=== PATIENT | female | born 1985 | race Caucasian/White ===

== ENCOUNTER 2020-07-21 10:49 | Outpatient (CLI) | payer BC, SELFPAY ==
--- NOTE | ~2020-07-21 | MR_ITS ---
EXAMINATION: MR shoulder RT wo con DATE: 07/21/2020 11:45 INDICATION: Right arm pain TECHNIQUE: Magnetic resonance imaging (MRI) of the right shoulder was performed without intravenous c ontrast. Sequences included axial PD-weighted FS FSE, coronal oblique PD-weighted FS FSE, coronal obl ique T2-weighted FS FSE, sagittal PD-weighted FS FSE, and sagittal T1-weighted SE. COMPARISON: None. FINDINGS: Coracoacromial arch: The acromion undersurface is curved in morphology (type II). The coracoacromial ligament is normal. M ild acromioclavicular osteoarthritis. Rotator cuff: Supraspinatus and infraspinatus tendinopathy. There is a small partial-thickness intrasubstance tear involving approximately 50% of the tendon thickness and extending 5 mm AP along the greater tuberosit y footplate of the conjoined portion of the supraspinatus and infraspinatus tendons. The teres minor and subscapularis tendons are normal. Normal rotator cuff muscle bulk and signal. Biceps tendon, glenoid labrum and glenohumeral cartilage: Long head of the biceps tendon is normal. Glenoid labrum is normal. Glenohumeral cartilage is normal. Fluid: Physiologic amount of fluid in the glenohumeral joint and biceps tendon sheath. No loose osteochondra l bodies. Small amount of fluid in the subacromial/subdeltoid bursa consistent with mild bursitis. Bones: Normal marrow signal with no edema, fracture or abnormal marrow replacing process. IMPRESSION: 1. Mild supraspinatus and infraspinatus tendinopathy with small partial-thickness intrasubstance tear of the conjoined portion of the tendons. 2. Mild subacromial/subdeltoid bursitis. Reviewed, dictated and finalized at location A. 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 Mild supraspinatus and infraspinatus tendinopathy with small partial-thickne ss intrasubstance tear of the conjoined portion of the tendons. 2. Mild subacromial/subdeltoid bursitis.
== END 2020-07-21 10:50 | disposition home or self-care (01) ==
PROVIDERS: PCP Physician Assistant; Visit Provider Physician Assistant
DX: M25.511 Pain in right shoulder (principal); M54.10 Radiculopathy, site unspecified; M75.111 Incomplete rotator cuff tear or rupture of right shoulder, not specified as traumatic; M19.011 Primary osteoarthritis, right shoulder; M75.51 Bursitis of right shoulder
CPT/HCPCS: 73221

== ENCOUNTER → 2021-04-29 13:45 | Outpatient (CLI) | payer BC, SELFPAY ==
--- NOTE | ~2021-04-29 | XR_ITS ---
XR hand RT min 3V DATE: 04/29/2021 14:01 INDICATION: Right finger pain TECHNIQUE: 3 views COMPARISON: None FINDINGS: No fracture or dislocation, periosteal reaction or bone destruction, erosive change or miranda drocalcinosis. Joint spaces appear preserved. IMPRESSION: No significant abnormality Reviewed, dictated and finalized at location A. IMPRESSION: No significant abnormality
== END ==
PROVIDERS: PCP Physician Assistant; Visit Provider Physician Assistant
DX: M79.644 Pain in right finger(s) (principal)
CPT/HCPCS: 73130

== ENCOUNTER 2022-08-16 15:34 | Emergency (ER) | payer BC, SELFPAY ==
[2022-08-16 16:29] VITALS: BP 112/66; PULSE 66; RESP 18; TEMP 36.4; O2SAT 100
--- NOTE | 2022-08-16 17:09 | ED.GENADULT ---
HPI - General Adult General Chief complaint: Upper Respiratory Infection Stated complaint: sore throat Time Seen by Provider: 08/16/22 17:09 Source: patient Mode of arrival: ambulatory Limitations: no limitations History of Present Illness HPI narrative: 6-year-old female patient presents to the [facility] with complaints of sore throat, hoarseness and just feeling very fatigued and tired for the past 4-5 days. Patient states she just wants to make sure she does not have any bacterial infection in the throat and requesting that she be swabbed for strep. Patient states that she has also been around a lot of people and likely swallowed for COVID today however she is aware that she is past the time for antivirals. Related Data Home Medications Medication Instructions Recorded Confirmed montelukast 10 mg tablet 10 mg PO DAILY 08/16/22 08/16/22 Allergies Allergy/AdvReac Type Severity Reaction Status Date / Time fluticasone [From Flonase] Allergy Intermediate Itching Verified 08/16/22 17:06 Review of Systems Review of Systems: CONSTITUTIONAL: Denies fever, chills, or sweats. Positive fatigue EYES: Denies visual changes, redness, or discharge. ENT: Denies rhinorrhea, congestion, positive sore throat, denied otalgia. CARDIOVASCULAR: Denies chest pain, palpitations, or edema. RESPIRATORY: Denies cough or dyspnea. GASTROINTESTINAL: Denies abdominal pain, nausea, vomiting, or diarrhea. GENITOURINARY: Denies dysuria or hematuria. SKIN: Denies rash or itching. MUSCULOSKELETAL: Denies back pain, joint pain, or myalgia. NEUROLOGIC: Denies headache, numbness, or weakness. PSYCHIATRIC: Denies anxiety or depression. PMFSH Comments At the time of my signature I agree with nursing past medical history, surgical, social, and family history. There is no relevant family history pertinent to the presenting complaint. Exam Narrative: GENERAL: Well-appearing, well-nourished, and in no acute distress. HEAD: Normocephalic, atraumatic. EYES: PERRLA and EOMI. ENT: Nares clear, no rhinorrhea or epistaxis. Mucous membranes moist. Posterior pharynx with no erythema, tonsillar enlargement, exudates or lesions present. Bilateral TMs are clear no erythema foreign bodies in the canal. NECK: Supple. Bilateral lymphadenopathy noted on palpation CHEST: Clear to auscultation. No respiratory distress. HEART: Regular rate and rhythm. No murmur heard. Normal peripheral pulses. ABDOMEN: Soft, nontender, nondistended, normal active bowel sounds. EXTREMITIES: Normal range of motion. No edema. SKIN: Warm, dry, no rash. NEURO: No focal deficits. Alert and oriented x3. Course Course Level of Care: Express Care Visit Vital Signs Vital signs: Vital Signs Temperature 36.4 C L 08/16/22 16:29 Pulse Rate 66 08/16/22 16:29 Respiratory Rate 18 08/16/22 16:29 Blood Pressure 112/66 08/16/22 16:29 Pulse Oximetry 100 08/16/22 16:29 Oxygen Delivery Room Air 08/16/22 16:29 Temperature 36.4 C L 08/16/22 16:29 Pulse Rate 66 08/16/22 16:29 Respiratory Rate 18 08/16/22 16:29 Blood Pressure 112/66 08/16/22 16:29 Pulse Oximetry 100 08/16/22 16:29 Oxygen Delivery Room Air 08/16/22 16:29 Vital signs reviewed Medical Decision Making Differential Diagnosis Differential Diagnosis: Differential diagnosis: Allergic rhinitis, chronic sinusitis, tonsillitis, acute sinusitis, infectious mononucleosis, seasonal influenza, pertussis, diphtheria, meningococcal disease, viral syndrome, viral bronchitis, RSV, COVID-19 Vital Signs Vital Signs: Vital Signs Temperature 36.4 C L 08/16/22 16:29 Pulse Rate 66 08/16/22 16:29 Respiratory Rate 18 08/16/22 16:29 Blood Pressure 112/66 08/16/22 16:29 Pulse Oximetry 100 08/16/22 16:29 Oxygen Delivery Room Air 08/16/22 16:29 Temperature 36.4 C L 08/16/22 16:29 Pulse Rate 66 08/16/22 16:29 Respiratory Rate 18 08/16/22 16:29 Blood Pressure 112/66 08/16/22 16:29 Puls
== END 2022-08-16 17:48 | disposition home or self-care (01) ==
PROVIDERS: Emergency Provider Nurse Practitioner Family; PCP Physician Assistant
DX: J02.9 Acute pharyngitis, unspecified (principal); Z20.822 Contact with and (suspected) exposure to COVID-19
CPT/HCPCS: 87426; 87880; 99213; C9803; G0463

== ENCOUNTER 2023-04-19 14:52 | Emergency (ER) | payer BC, SELFPAY ==
--- NOTE | 2023-04-19 14:54 | ECG_ITS ---
Measurements Intervals [place] Rate: 77 P: 52 NV: 165 QRS: 29 QRSD: 76 T: 27 QT: 367 QTc: 418 Interpretive Statements SINUS RHYTHM MINIMAL Q WAVES- HIGH LATERAL LEADS BORDERLINE ECG NO PREVIOUS ECG AVAILABLE FOR COMPARISON Electronically Signed On 04-19-2023 16:50:27 CDT by Lopez Goodson D.O.
[2023-04-19 14:55] VITALS: BP 111/68; PULSE 78; RESP 16; TEMP 36.4; O2SAT 98
[2023-04-19 15:11] LABS: Basophils Percent Auto 0.3 % (0.2-1.2); Eosinophils Absolute Auto 0.3 K/mm3 (0-0.3); Eosinophils Percent Auto 3.6 % (0-4.4); Hematocrit 40.6 % (37.0-47.0); Hemoglobin 13.8 g/dL (12.0-15.0); Immature Granulocyte Absolute 0.03 K/mm3 (0.00-0.031); Immature Granulocyte Percent A 0.3 % (0-0.5); Lymphocytes Absolute Auto 3.12 K/mm3 (0.9-3.2); Lymphocytes Percent Auto 32.9 % (18.3-44.2); Mean Corpuscular Hemoglobin 29.6 pg (26-34); Mean Corpuscular Volume 86.9 fl (80-100); Mean Platelet Volume 9.7 fl (7.4-10.4); Monocytes Absolute Auto 0.7 K/mm3 (0.1-0.6); Monocytes Percent Auto 7.3 % (2.6-8.5); Neutrophils Absolute Auto 5.3 K/mm3 (1.3-6.7); Neutrophils Percent Auto 55.6 % (45.5-73.1); Platelet Count Result 224 k/mm3 (150-375); Red Blood Count 4.67 M/mm3 (4.2-5.4); Red Cell Distribution Width 12.6 % (11.5-14.5); White Blood Count 9.5 K/mm3 (4.5-10.0)
[2023-04-19 15:21] LABS: Alanine Aminotransferase 39 U/L (6-35); Albumin Level 4.2 g/dL (3.5-5.1); Alkaline Phosphatase 61 U/L (38-126); Anion Gap 5 mmol/L (8-16); Aspartate Amino Transferase 31 U/L (14-36); Bilirubin,Total 0.5 mg/dL (0.2-1.3); Blood Urea Nitrogen 13 mg/dL (7-17); Calcium 9.3 mg/dL (8.4-10.2); Carbon Dioxide 29 mmol/L (22-30); Chloride 106 mmol/L (98-107); Estimated CRCL calculation 84 ml/min; Estimated Glomerular Filt Rate > 60; Glucose 89 mg/dL (65-110); Lipase 101 U/L (23-300); Potassium 4.2 mmol/L (3.4-5.0); Sodium 140 mmol/L (137-145)
[2023-04-19 15:28] LABS: Appearance Urine Clear (Clear); Bacteria Urine None Seen /hpf; Bilirubin Urine Negative (Negative); Blood Urine Negative (Negative); Color Urine Yellow (Yellow); Glucose Urine UA Negative (Negative); Ketones Urine Negative (Negative); Leukocyte Esterase Ur Trace LEU/UL (Negative); Nitrate Urine Negative (Negative); Non Pathogenic Casts 0-2; Protein Urine Negative (Negative); RBC Urine 0-2 /hpf (0-2); Specific Grav Ur 1.018 (1.001-1.035); Squamous Epithelial Cell Urine Occasional /hpf (Few); Urobilinogen Urine 0.2 mg/dL (<2.0); WBC Urine 0-5 /hpf
[2023-04-19 15:30] LABS: Add Urine Microscopic? YES
--- NOTE | 2023-04-19 16:52 | ED.GENADULT ---
HPI - General Adult General Chief complaint: Abdominal Pain Stated complaint: stomach ulcer, pain in abdomen Time Seen by Provider: 04/19/23 16:13 Source: patient Mode of arrival: ambulatory Limitations: no limitations History of Present Illness HPI narrative: This is a 37-year-old female with no pertinent PMH who presents to the ED with chief complaint of epigastric pain beginning around 10 AM this morning after she woke up. She states she woke up with a sour taste in the mouth. Reports that pain will occasionally radiate superiorly and she will feel it in her throat. She states the sore throat pain reaction seems to make her feel nauseous as well. She states she has not vomited. She reports taking Pepcid and Tums with minimal relief. Endorses a little bit of constipation but no major problems with bowel movements. Denies fevers, chills, chest pain, shortness of breath, cough, urinary symptoms. She states she has had this problem occasionally in the past but usually self resolves. Related Data Home Medications Medication Instructions Recorded Confirmed montelukast 10 mg tablet 10 mg PO DAILY 08/16/22 08/16/22 Allergies Allergy/AdvReac Type Severity Reaction Status Date / Time fluticasone [From Flonase] Allergy Intermediate Itching Verified 08/16/22 17:06 Review of Systems Review of Systems: All systems as dictated in HPI Exam Narrative: GENERAL: Well-appearing, well-nourished, and in no acute distress. HEAD: Normocephalic, atraumatic. EYES: PERRLA and EOMI. ENT: Nares clear, no rhinorrhea or epistaxis. Mucous membranes moist. Oropharynx without tonsillar hypertrophy exudate or other lesions. NECK: Supple. No adenopathy or masses. CHEST: No respiratory distress. Clear to auscultation. No wheezes rales or rhonchi HEART: Regular rate and rhythm. No murmur heard. Normal peripheral pulses. ABDOMEN: Soft, nontender, nondistended, normal active bowel sounds. MSK: Normal range of motion. No edema. SKIN: Warm, dry, no rash. NEURO: Alert and oriented x3. No focal deficits. PSYCH: Normal mood and affect. Course Course Emergency Course: Reevaluation 1734: Feeling temporary relief with the GI cocktail. Vital Signs Vital signs: Vital Signs Temperature 97.6 F 04/19/23 14:55 Pulse Rate 78 04/19/23 14:55 Respiratory Rate 16 04/19/23 14:55 Blood Pressure 111/68 04/19/23 14:55 Pulse Oximetry 98 04/19/23 14:55 Oxygen Delivery Room Air 04/19/23 14:55 Temperature 97.6 F 04/19/23 14:55 Pulse Rate 78 04/19/23 14:55 Respiratory Rate 16 04/19/23 14:55 Blood Pressure 111/68 04/19/23 14:55 Pulse Oximetry 98 04/19/23 14:55 Oxygen Delivery Room Air 04/19/23 14:55 Medical Decision Making MDM Narrative Medical decision making narrative: This is a 37-year-old female who presents to the ED with chief complaint of epigastric pain beginning this morning. Vitals are normal. Exam is benign. No focal abdominal tenderness. She is not vomiting here in the ER. Laboratory work-up is grossly unremarkable. UA is negative. She had brief improvement with GI cocktail and Zofran here. We discussed that her symptoms are most likely consistent with gastritis. Shared decision making to avoid a CT scan at this time. She feels more comfortable going home and following up with her primary care doctor about this. Pt will be discharged in stable condition. Return precautions given and supportive measures discussed. Pt is understanding and agreeable with plan for discharge and follow-up with PCP. Vital Signs Vital Signs: Vital Signs Temperature 97.6 F 04/19/23 14:55 Pulse Rate 78 04/19/23 14:55 Respiratory Rate 16 04/19/23 14:55 Blood Pressure 111/68 04/19/23 14:55 Pulse Oximetry 98 04/19/23 14:55 Oxygen Delivery Room Air 04/19/23 14:55 Temperature 97.6 F 04/19/23 14:55 Pulse Rate 78 04/19/23 14:55 Respiratory Rate 16 04/19/23 14:55 Blood Pres
[2023-04-19] MEDS: BELLADONNA ALK/PHENOB ELIX 10 ML, MAG HYDROX/ALUMINUM HYD/SIMETH 30 ML, LIDOCAINE HCL 2... PO (17:07)
[2023-04-19] MEDS: ONDANSETRON HCL ODT 4 MG TABLET PO (17:07)
[2023-04-19 17:41] VITALS: BP 110/64; PULSE 74; RESP 16; O2SAT 98
== END 2023-04-19 17:46 | disposition home or self-care (01) ==
PROVIDERS: Emergency Medicine; Emergency Provider Physician Assistant; PCP Physician Assistant
DX: K29.70 Gastritis, unspecified, without bleeding (principal); R94.31 Abnormal electrocardiogram [ECG] [EKG]
CPT/HCPCS: 36415; 80053; 81001; 81025; 83690; 85025; 93005; 99283; A9270

== ENCOUNTER 2023-07-15 08:16 | Outpatient (CLI) | payer BC, SELFPAY ==
--- NOTE | ~2023-07-15 | US_ITS ---
Limited Abdominal Sonogram: Real-time sonographic imaging of the right upper quadrant was performed. Clinical History: Abnormal liver transaminase levels Findings: The liver appears normal with no evidence of bile duct dilatation. There is an 8 mm hypere choic mass in the liver, most likely small hemangioma. Main portal vein demonstrates normal direction of flow. The gallbladder is well distended, and appears normal with no evidence of gallstone or wall thickening. The common bile duct measures 4 mm. The visualized pancreas, aorta, and IVC are unremar kable. Impression: 8 mm hyperechoic hepatic mass, most likely small hemangioma. No other significant findings. Reviewed, dictated and finalized at location . F [employer] Impression: 8 mm hyperechoic hepatic mass, most likely small hemangioma. No other significant findings.
--- NOTE | ~2023-07-15 | NM_ITS ---
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 TECHNIQUE: 5 mCi Tc-99m mebrofenin (Choletec) was administered intravenously. Scintigraphic images o f the abdomen were obtained for one hour. At the 1 hour time point, the patient drank 8 oz Ensure, an d imaging was continued for 60 minutes. Gallbladder ejection fraction was calculated by the technolog ist. FINDINGS: There is normal clearance of radiotracer from the blood pool. There is homogeneous tracer u ptake by the liver. Activity progresses to the bowel and gallbladder. The gallbladder ejection fract ion is 55%. Note that with this technique, normal GBEF >= 33%. IMPRESSION: 1. Normal hepatobiliary scan. Reviewed, dictated and finalized at location B. GRINDER
== END 2023-07-15 08:17 | disposition home or self-care (01) ==
PROVIDERS: PCP Physician Assistant; Visit Provider Nurse Practitioner
DX: R74.01 Elevation of levels of liver transaminase levels (principal); R14.2 Eructation; K21.9 Gastro-esophageal reflux disease without esophagitis; R10.13 Epigastric pain; R16.0 Hepatomegaly, not elsewhere classified
CPT/HCPCS: 76705; 78226; A9537

== ENCOUNTER 2023-08-05 00:20 | Day surgery (SDC) | payer BC, SELFPAY ==
[2023-07-21 13:21] VITALS: BMI 28.4
--- NOTE | 2023-08-03 09:07 | SUR.PREOP ---
Patient called regarding upcoming procedure. Message left on pt's voicemail regarding appointment times.
[2023-08-05] MEDS: LACTATED RINGERS 1,000 ML 150 ML IV CONT (07:17)
[2023-08-05 07:18] VITALS: BP 97/59; PULSE 69; RESP 20; TEMP 36.1; O2SAT 99
--- NOTE | 2023-08-05 07:45 | WPDANESEPPF ---
Anes - Initial Pre Proc Eval Procedure: Operation Date: 08/05/23 08:00 Proposed Procedures p Esophagogastroduodenoscopy - Sergei Lopez MD Date/Time: 08/05/23 07:45 Surgeon: Sergei Lopez MD Pre Op Diagnosis: Epigastric pain,GERD,Eructation Patient Data Age: 37 Gender: F Height: 1.55 m Weight: 69.2 kg Last Vital Signs Temp 36.1 C L 08/05/23 07:18 Pulse 69 08/05/23 07:18 Resp 20 08/05/23 07:18 BP 97/59 L 08/05/23 07:18 Pulse Ox 99 08/05/23 07:18 O2 Del Method Room Air 08/05/23 07:18 Allergies Allergy/AdvReac Type Severity Reaction Status Date / Time doxycycline AdvReac Intermediate Gastrointestinal Verified 08/05/23 07:10 Upset hydrocodone [From Vicodin] AdvReac Intermediate Gastrointestinal Verified 08/05/23 07:10 Upset tree nut AdvReac Intermediate Gastrointestinal Verified 08/05/23 07:10 Upset Home Medications Medication Instructions Recorded Confirmed Type montelukast 10 mg tablet 10 mg PO DAILY 08/16/22 07/21/23 History cetirizine 10 mg tablet (Zyrtec) 10 mg PO DAILY 06/24/23 07/21/23 History cholecalciferol (vitamin D3) 125 125 mcg PO DAILY 06/24/23 07/21/23 History mcg (5,000 unit) capsule dextroamphetamine-amphetamine ER 37.5 mg PO DAILY 06/24/23 07/21/23 History 37.5 mg capsule, 3 bead, ext rel 24hr (Mydayis) vortioxetine 20 mg tablet 20 mg PO DAILY 06/24/23 07/21/23 History (Trintellix) albuterol sulfate 90 mcg/actuation 2 inh inhalation Q4H PRN Shortness 07/21/23 07/21/23 History aerosol inhaler Of Breath dextroamphetamine-amphetamine 10 10 mg PO DAILY 07/21/23 07/21/23 History mg tablet eszopiclone 2 mg tablet 2 mg PO HS 07/21/23 07/21/23 History levomefolate calcium 15 mg tablet 15 mg PO DAILY 07/21/23 07/21/23 History (Elfolate) omeprazole 20 mg capsule,delayed 20 mg PO QPM 07/21/23 07/21/23 History release Patient hx anesthesia problems: none Family hx anesthesia problems: none Results Review: All pre-operative results and documents have been reviewed as part of the pre-operative evaluation. [facility] Past Medical History Medical History Belching BMI 28.0-28.9,adult Elevated ALT measurement Epigastric pain Gastroesophageal reflux disease Surgical History Surgical History Hx of breast augmentation Hx of wisdom tooth extraction Family History Family History Father Alcoholic Hyperlipidemia Mental health disorder Drug addict Mother Mental health disorder Carcinoma of colon Breast cancer Sibling Drug addict Social History Social History Smoking status: Never smoker Second hand tobacco smoke exposure: No Alcohol intake: current Substance use: never Substance use type: does not use Lack of Transportation: No Lack of Food: Never True Current Housing: I Have Housing Concerned About Future Housing: No Difficulty Paying Gas/Electric Bills: No Difficulty Paying for Meds: No Currently Unemployed: No Education: Master's Degree or Higher Difficulty w/ Childcare or Family Care: No Living arrangements: with family Occupation/Education: occupation 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
--- NOTE | 2023-08-05 07:54 | PM.HPGS ---
History of Present Illness History of Present Illness Consent: Risks, benefits, and alternatives have been discussed and questions answered. Patient agrees to proceed with procedure. Chief complaint: Epigastric pain,GERD,Eructation Narrative: Ayde Fletcher is a 37 year old female with intermittent epigastric pain, lately without pain, using ppi only as needed. HIDA scan and abd ultrasound unremarkable, never had egd Review of Systems Constitutional: Constitutional: Denies headache(s) and Denies weakness Eyes: Eyes: Denies blurry vision ENT: Reports Normal hearing present, Denies headache(s) and Denies neck pain Cardiovascular: Cardiovascular: Denies chest pain and Denies dyspnea Respiratory: Respiratory: Denies dyspnea Gastrointestinal: Gastrointestinal: Reports no additional gastrointestinal complaints Genitourinary: Genitourinary: Denies dysuria Musculoskeletal: Musculoskeletal: Denies neck pain Integumentary/Breasts: Skin/Breast: Denies dry skin Neurologic: Reports Normal hearing present, Denies headache(s) and Denies weakness Psychiatric: Psychiatric: Denies anxiety Endocrine: Endocrine: Denies change in body appearance Hematologic/Lymphatic: Hematologic/Lymphatic: Denies easy bleeding Allergic/Immunologic: Allergic/Immunologic: Denies urticaria PMFSH Past Medical History Medical History Belching BMI 28.0-28.9,adult Elevated ALT measurement Epigastric pain Gastroesophageal reflux disease Surgical History Surgical History Hx of breast augmentation Hx of wisdom tooth extraction Family History Family History Father Alcoholic Hyperlipidemia Mental health disorder Drug addict Mother Mental health disorder Carcinoma of colon Breast cancer Sibling Drug addict Social History Social History Smoking status: Never smoker Second hand tobacco smoke exposure: No Alcohol intake: current Substance use: never Substance use type: does not use Lack of Transportation: No Lack of Food: Never True Current Housing: I Have Housing Concerned About Future Housing: No Difficulty Paying Gas/Electric Bills: No Difficulty Paying for Meds: No Currently Unemployed: No Education: Master's Degree or Higher Difficulty w/ Childcare or Family Care: No Living arrangements: with family Occupation/Education: occupation 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 Gender identity (if verbalized by the patient): Female Spiritual care concerns: No Meds Home Medications and Allergies Home Medications Medication Instructions Recorded Confirmed Type montelukast 10 mg tablet 10 mg PO DAILY 08/16/22 07/21/23 History cetirizine 10 mg tablet (Zyrtec) 10 mg PO DAILY 06/24/23 07/21/23 History cholecalciferol (vitamin D3) 125 125 mcg PO DAILY 06/24/23 07/21/23 History mcg (5,000 unit) capsule dextroamphetamine-amphetamine ER 37.5 mg PO DAILY 06/24/23 07/21/23 History 37.5 mg capsule, 3 bead, ext rel 24hr (Mydayis) vortioxetine 20 mg tablet 20 mg PO DAILY 06/24/23 07/21/23 History (Trintellix) albuterol sulfate 90 mcg/actuation 2 inh inhalation Q4H PRN Shortness 07/21/23 07/21/23 History aerosol inhaler Of Breath dextroamphetamine-amphetamine 10 10 mg PO DAILY 07/21/23 07/21/23 History mg tablet eszopiclone 2 mg tablet 2 mg PO HS 07/21/23 07/21/23 History levomefolate calcium 15 mg tablet 15 mg PO DAILY 07/21/23 07/21/23 History (Elfolate) omeprazole 20 mg capsule,delayed 20 mg PO QPM 07/21/23 07/21/23 History release Allergies Allergy/AdvReac Type Severity Reaction Status Date / Time doxycycline AdvReac Intermediate Gastrointestinal Verified 08/05/23 07:10 Upset hydrocodone [From Vicodin] AdvReac In
[2023-08-05 08:11] VITALS: BP 105/69; PULSE 65; RESP 16; O2SAT 99
[2023-08-05 08:21] VITALS: BP 103/67; PULSE 66; RESP 14; O2SAT 100
[2023-08-05 08:31] VITALS: BP 104/68; PULSE 76; RESP 16; O2SAT 100
== END 2023-08-05 08:33 | disposition home or self-care (01) ==
PROVIDERS: PCP Physician Assistant; Visit Provider Internal Medicine Gastroenterology
PROC: 0DJ08ZZ Inspection of Upper Intestinal Tract, Via Natural or Artificial Opening Endoscopic (ICD-10-PCS; CPT 43235; principal; 2023-08-05 08:00)
DX: K29.50 Unspecified chronic gastritis without bleeding (principal); K21.9 Gastro-esophageal reflux disease without esophagitis; Z79.51 Long term (current) use of inhaled steroids
CPT/HCPCS: 43239; 88305; J2405; J2704; J3010; J7120